=== PATIENT | female | born 1945 | race Caucasian/White ===

== ENCOUNTER → 2017-07-03 | Outpatient (CLI) | payer MEDICARE ==
[2017-07-04 16:27] LABS: AUTOMATED NEUTROPHIL # 2.3 TH/MM3 (1.8-7.7); BASOPHIL % 0.9 % (0.0-2.0); EOSINOPHIL # 0.1 TH/MM3 (0-0.4); EOSINOPHIL % 3.1 % (0.0-4.0); HEMATOCRIT 41.3 % (35.0-46.0); LYMPH % 37.6 % (9.0-44.0); LYMPHOCYTE # 1.8 TH/MM3 (1.0-4.8); MEAN CORPUSCULAR HEMOGLOBIN 32.6 PG (27.0-34.0); MEAN CORPUSCULAR HGB CONC 33.9 % (32.0-36.0); MEAN PLATELET VOLUME 8.2 FL (7.0-11.0); MONO % 10.5 % (0.0-8.0); MONOCYTE # 0.5 TH/MM3 (0-0.9); NEUT % 47.9 % (16.0-70.0); PLATELET COUNT 272 TH/MM3 (150-450); RED CELL DISTRIBUTION WIDTH 13.3 % (11.6-17.2); WHITE BLOOD COUNT 4.8 TH/MM3 (4.0-11.0)
[2017-07-04 16:34] LABS: PROTHROMBIN TIME - PATIENT 10.4 SEC (9.8-11.6)
[2017-07-04 16:55] LABS: BACTERIA, URINE OCC /hpf; BILIRUBIN, URINE NEG (NEG); BLOOD, URINE NEG (NEG); GLUCOSE,URINE NEG (NEG); KETONE, URINE TRACE mg/dL (NEG); MUCUS URINE MANY /lpf (OCC); NITRITE,URINE NEG (NEG); SQUAMOUS EPITHELIAL CELL URINE 7 /hpf (0-5); URINE COLOR YELLOW (YELLW/STRAW); URINE LEUKOCYTE ESTERASE NEG (NEG)
[2017-07-04 17:06] LABS: ALBUMIN 3.7 GM/DL (3.4-5.0); AST (GOT) 13 U/L (15-37); BICARBONATE 24.7 MEQ/L (21.0-32.0); BLOOD UREA NITROGEN 27 MG/DL (7-18); CALCIUM 8.8 MG/DL (8.5-10.1); CHLORIDE 99 MEQ/L (98-107); CREATININE 1.25 MG/DL (0.50-1.00); GLOMERULAR FILTRATION RATE 42 ML/MIN (>89); GLUCOSE,FASTING 79 MG/DL (74-99); SODIUM (NA) 133 MEQ/L (136-145)
[2017-07-04 17:07] LABS: ALT (GPT) 19 U/L (10-53); CHOLESTEROL 215 MG/DL (120-200); TRIGLYCERIDES 212 MG/DL (42-150)
[2017-07-04 17:17] LABS: ALKALINE PHOSPHATASE 46 U/L (45-117); CHOLESTEROL/ HDL RATIO 5.19 RATIO; HDL CHOLESTEROL 41.4 MG/DL (40.0-60.0); LDL CHOLESTEROL 131 MG/DL (0-99); TOTAL BILIRUBIN ADULT 0.4 MG/DL (0.2-1.0); TOTAL PROTEIN 7.3 GM/DL (6.4-8.2)
--- NOTE | 2017-07-06 14:29 | HM ---
Date Performed: 07/03/2017 Time Performed: 12:56:00 HOOKUP DATE: 07/03/17 12:56:00 PM [facility] ANALYSIS START TIME: 07/03/2017 1:01:00 PM ANALYSIS END TIME: 07/04/2017 1:04:59 PM PATIENT AGE: 71 PATIENT HEIGHT PATIENT WEIGHT DRUG LIST: room # out patient PATIENT DIAGNOSIS: DX: I48.91 TEST NARRATIVE: The patient's average heart rate was 55 BPM. No episodes of tachycardia wer e noted. Heart rates less than 50 BPM were noted 20% of the time. No pauses exceeding 2.0 second s were noted. 134 ventricular ectopics, which represented < 1% of the total beat count, were note d. The highest ventricular ectopic frequency occurred from 02:00 PM to 03:00 PM [facility]. During this ti me 44 VE(s) occurred. Ventricular ectopics were observed as 134 isolated beat(s) only. No couplets or runs were noted. 3 supraventricular ectopics, which represented < 1% of the total beat count, were noted. The highest supraventricular ectopic frequency occurred from 06:00 PM to 07:00 PM [facility]. During this time 1 SVE(s) occurred. No episodes of ST depression (defined as -1.0 mm or more) wer e noted in channel 1. No episodes of ST depression (defined as -1.0 mm or more) were noted in channe l 2. No episodes of ST depression (defined as -1.0 mm or more) were noted in channel 3. no diary ret urned TEST INTERPRETATION: Patient generally has bradycardia with heart rates between 45 and 60. No ma rked bradycardia seen. No other heart block is present. Patient has [id number] PVCs with no c omplex forms and very rare PACs. No tachycardia episodes are present. Overall, this patient has sinus bradycardia which may indicate either a beta kelly medication or some degree of bradycardia due to sick sinus syndrome, but there is no marked bradycardia requiring intervention. Patient states that there was nothing written in patient diary and no diary was returned. Signed by : Anson Núñez
[2017-07-08 15:28] LABS: CARDIOLIPIN IGG AB <9.4 GPL; CARDIOLIPIN IGM AB <9.4 MPL
[2017-07-08 17:26] LABS: PROTEIN C ACTIVITY 198 % (70 - 150); PROTEIN S ACTIVITY 23 % (65 - 160)
[2017-07-08 23:51] LABS: HOMOCYSTEINE 19.2 umol/L (<10.4)
== END ==
LOC: HCAV 12:42
PROVIDERS: ATTEND Psychiatry & Neurology Neurology
DX: I48.91 Unspecified atrial fibrillation (principal)
CPT/HCPCS: 36415; 80053; 80061; 81001; 81240; 81241; 81291; 82306; 83090; 84443; 85025; 85300; 85303; 85306; 85610; 85613; 85652; 85730; 86038; 86147; 93225; 93226